=== PATIENT | female | born 1955 | race Caucasian/White ===

== ENCOUNTER → 2016-06-16 11:41 | Day surgery (SDC) | payer BC ==
--- NOTE | 2016-06-01 18:05 | HP ---
ADMISSION HISTORY AND PHYSICAL: DATE OF ADMISSION: 06/16/16 ATTENDING SURGEON: Dr. Willian Wilkinson. (dictated by CLARIBEL Hillman) CHIEF COMPLAINT: Symptomatic cholelithiasis. HISTORY OF PRESENT ILLNESS: This is a 60-year-old generally healthy female, who first began to experience upper abdominal symptoms in the early summer of 2015. Symptoms would include nausea, epigastric pain, and pressure and occasional episode of vomiting. Symptoms were not always clearly related to eating or food types. She did undergo an EGD with Dr. Eda Arce in September 2015, this was apparently a normal study with normal duodenal and gastric biopsies. She also underwent ultrasound of the gallbladder, which per Dr. Wilkinson' note did show stones, but normal ducts, and no evidence of acute cholecystitis. She was seen by Dr. Wilkinson in October 2015 at which time her evaluation was suggestive of symptomatic cholelithiasis. However, the patient preferred to take a wait and see approach, but in the interim has had increasing and occasionally more severe symptoms as described above such as she is now in favor of proceeding with cholecystectomy. She was seen most recently by Dr. Wilkinson on 04/19/16. She denies fever or chills with the episodes. She denies any episodes with dark urine. Attacks again seemed to be increasing in both frequency and severity. She understands the indications for surgery, the risks , benefits, and alternatives as well as the expected perioperative course. She would like to proceed as scheduled with laparoscopic cholecystectomy. PAST MEDICAL HISTORY: Depression, psoriasis. She denies history of cardiovascular disease, diabetes, bleeding or clotting disorders, or malignancy. PAST SURGICAL HISTORY: Include a subtotal abdominal hysterectomy for benign disease, right shoulder surgery in 1997, right ovarian cystectomy with appendectomy, and a bone graft to the right humerus (from the left hip) for a benign nonossifying lesion. She denies any anesthesia or surgical-related complications. CURRENT MEDICATIONS: 1. Venlafaxine 75 mg ER once daily. 2. Folic acid 1 mg once daily 6 days out of 7. 3. Methotrexate 2.5 mg 6 tablets once weekly. DRUG ALLERGIES: CODEINE (migraines), (she has tolerated hydrocodone and oxycodone). FAMILY HISTORY: Negative for anesthesia problems, bleeding or clotting disorders. SOCIAL HISTORY: The patient lives with her . 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 She denies use of tobacco. She drinks one gin and tonic daily. She denies other recreational drug use. REVIEW OF SYSTEMS: General: No recent constitutional symptoms or acute illnesses other than described in the HPI. Her weight has remained relatively stable. Cardiovascular: No chest pain, palpitations, or history of heart murmur. No history of hypertension. Respiratory: No history of asthma, chronic cough, or shortness of breath. GI: As above per HPI. No significant lower GI symptoms. She did undergo colonoscopy at age 50, which was a normal study with recommended followup at 10 years and no significant interval symptoms. : No problems reported. RN CLINICIAN: She has not had a Pap smear for many years. She does undergo breast exam and mammogram at regular intervals ( every 1 to 2 years). She did have an episode of what sounds like an inflammatory event about 6 to 9 months ago involving the right breast and has noted right nipple inversion since that time. I discussed that with her with my concern that repeat exam and imaging would be indicated and she will contact her PCP office to arrange that. Endocrine: No diabetes or thyroid dysfunction. Musculoskeletal: History of psoriasis, but no psoriatic arthritis. Neuropsych: History of depression. PHYSICAL EXAMINATION GENERAL: Well-nourished, well-developed female, in no acute distress. VITAL SIGNS: Height 62 inches, weight 150 pounds by history. Temperature 97.6 , blood pressure 138/84, pulse 76, respirations 16. HEENT: Pupils equal and round, reactive. EOMs intact. No conjunctival pallor or scleral icterus. Oropharynx: Teeth in good repair. No intraoral lesions. She does have upper and lower retainers in place. NECK: No lymphadenopathy, thyromegaly, or masses. LUNGS: Clear to auscultation. No wheezes. HEART: Regular rate and rhythm. No murmur noted. BREASTS: Not examined (see above). ABDOMEN: Soft, nontender to palpation. No palpable masses or organomegaly. EXTREMITIES: No edema. GENITAL AND RECTAL: Not done. BACK: No spinous process or CVA tenderness. NEUROLOGIC: Grossly intact. SKIN: Warm and dry. No suspicious rashes or lesions. IMPRESSION: Symptomatic cholelithiasis. PLAN: Laparoscopic cholecystectomy. CLARIBEL ADDISON CC: Monae StringerUniversity [facility]als [facility] * [id number]/[facility] #: [id number] JF
[~2016-06-16 11:41] MED LIST: Atracurium* 10 MG/ML 10 ML VIAL ONE; Buffered Lidocaine 1% SYR 3ML* 3 ML/SYR SYRINGE INTRADERM ONE; Bupivacaine 0.5% W/EPI SDV* 30 ML VIAL ONE; Dexamethasone IV* 4 MG/ML 1 ML (4 MG) ONE; Famotidine IV* 10 MG/ML 2 ML (20 mg) IV ONE; Famotidine IV* 10 MG/ML 2 ML (20 mg) ONE; Glycopyrrolate IV* 0.2 MG/ML 1 ML VIAL ONE; KETAMINE HCL* 50 MG/ML 10 ML VIAL ONE; Ketorolac INJ* 30 MG/ML 1 ML VIAL ONE; Lidocaine 2% PF * 5 ML VIAL ONE; Midazolam* 1 MG/ML 5 ML VIAL (5 MG) ONE; Morphine INJ* 10 MG/ML 1 ML CARPUJECT ONE; Morphine INJ* 2 MG/ML 1 ML CARPUJECT IV PRN; Neostigmine Methylsulfate* 2 MG/2 ML SYRINGE ONE; PROCHLORPERAZINE INJ 5 MG/ML 2 ML VIAL IV PRN; PROCHLORPERAZINE INJ 5 MG/ML 2 ML VIAL ONE; Propofol* 10 MG/ML 20 ML BTL IV PUSH ONE; ceFAZolin 2 GM PREMIX (*) 2 GM/50 ML BAG IVPB ONE; fentaNYL* 50 MCG/ML 2 ML VIAL (100 MCG VIAL) IV PRN; fentaNYL* 50 MCG/ML 2 ML VIAL (100 MCG VIAL) ONE; oxyCODONE/Acetamin 5/325 MG* TAB PO PRN
--- NOTE | 2016-06-16 15:59 | PN ---
Progress Note - Progress Note Note: Brief Op Note: Preop Dx: symptomatic cholelithiasis Postop Dx: same, plus chronic cholecystitis Procedure: Laparoscopic Cholecystectomy Anesthesia: GET Surgeon: Minh Asst: CLARIBEL Mendez EBL: < 100 ml Fluids: 1600 ml RL specimen: gallbladder Drains: none
[2016-06-16 19:32] VITALS: BP 118/86
--- NOTE | 2016-06-17 13:57 | OP ---
DATE OF OPERATION: 06/16/16 [facility] DATE OF : 55 SURGEON: Willian Wilkinson MD FINAL CANOE INSPECTOR: CLARIBEL Mustafa ANESTHESIOLOGIST: Dr. Haim Medrano. ANESTHESIA: General endotracheal. PRE-OP DIAGNOSIS: Symptomatic gallstones. POST-OP DIAGNOSIS: Symptomatic gallstones. OPERATIVE PROCEDURE: Laparoscopic cholecystectomy. ESTIMATED BLOOD LOSS: Less than 10 mL. IV FLUIDS: Crystalloid. SPECIMEN: Gallbladder and contents. DRAINS: None. COMPLICATIONS: None. COUNTS: The instrument, needle, and sponge counts were correct. DESCRIPTION OF PROCEDURE: The patient was brought to the operating room and placed on the table supine. Sequential compression devices were placed in both lower extremities. She was administered general anesthesia and appropriate IV antibiotics. Her abdomen was prepped and draped in the usual sterile fashion and time-out was performed. Local anesthetic was infiltrated into the skin and soft tissue prior to making each incision. Entry to the abdomen was through a transumbilical vertical incision. After accessing the peritoneal cavity, carbon dioxide was insufflated through a 5 mm trocar to a pressure of 15 mmHg and laparoscope was introduced. There was noted to be no injury to underlying viscera. There were adhesions in the lower abdomen of omentum to the anterior abdominal wall. Under direct visualization, a 5 mm trocar was placed in the subxiphoid position and two additional 5 mm trocars in the right upper quadrant. The initial trocar was exchanged for a 12 mm trocar. The patient was positioned right side up in reverse Trendelenburg. The gallbladder was noted to be quite large and redundant upon and self folded over and long. The gallbladder exhibited findings of chronic scarring consistent with diagnosis of chronic cholecystitis. The gallbladder was grasped at its mid portion due to its extreme length; this was used to retract the gallbladder cephalad. The peritoneum and adhesions that were investing the gallbladder over the infundibulum were incised using cautery and sharp dissection, freeing the infundibulum on both the medial and lateral aspects, so that the infundibulocystic duct junction could subsequently be dissected out. The critical view was able to be obtained and the dissection of the cystic artery was also performed. The cystic duct was doubly clipped and divided and subsequently the cystic artery was clipped and divided. The gallbladder was divided from attachments to the liver bed using the hook cautery and staying in an avascular plane. Once the gallbladder was freed, it was placed into a large size endoscopic retrieval bag and retrieved through the umbilical site. Because of the large gallbladder and multiple stones, the gallbladder was opened within the bag to extract the stones in order that the gallbladder could subsequently be removed. After this had been achieved, the area of dissection was inspected. Irrigation was performed until clear. Clips were noted to be intact and hemostasis was excellent. The ports were removed under direct visualization. The umbilical site was closed with 0 Polysorb in [id number] fashion. The skin incisions were all closed with 4-0 Monocryl in a subcuticular fashion and Steri-Strips were applied. The patient tolerated this procedure well. She subsequently was extubated and was transferred to recovery room in stable condition. CC: Natan Reed MD * [id number] #: [id number]
== END | disposition home or self-care (01) ==
LOC: OR 11:41
PROVIDERS: ATTEND Surgery
DX: K80.10 Calculus of gallbladder with chronic cholecystitis without obstruction (principal); L40.9 Psoriasis, unspecified
CPT/HCPCS: 88304; J0690; J0780; J1100; J1885; J2250; J2270; J2704; J3010